=== PATIENT | male | born 2000 | race Hispanic/Latino ===

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

== ENCOUNTER 2023-04-20 21:14 | Emergency (ER) | payer OTHER, SELFPAY ==
[2023-04-20] MEDS ORDERED: Bacitracin 1 PK ONE (23:26)
== END 2023-04-20 23:46 | disposition home or self-care (01) ==
LOC: ERS 21:14
DX: S60.416A Abrasion of right little finger, initial encounter (principal); W22.8XXA Striking against or struck by other objects, initial encounter

== ENCOUNTER 2025-05-27 13:37 | Emergency (ER) | payer OTHER, SELFPAY | END 2025-05-27 16:53 | LOC: ERS 13:37 | DX: L03.116 Cellulitis of left lower limb (principal) | CPT/HCPCS: 99283 ==